=== PATIENT | male | born 1950 | race Caucasian/White ===

== ENCOUNTER 2018-05-11 16:45 | Emergency (ER) | payer OTHER, MEDICARE, SELFPAY ==
[2018-05-11] VITALS (9 sets, daily range): BP systolic 188–231; BP diastolic 99–141; PULSE 67–87; RESP 16–26; TEMP 36.3–36.7; O2SAT 94–98; BMI 23.8
[2018-05-11 17:01] LABS: Bedside Glucose 100 mg/dL (70-110)
--- NOTE | 2018-05-11 17:15 | ED.RN ---
pt denies headache.
--- NOTE | 2018-05-11 17:21 | CT_ITS ---
STUDY: CT BRAIN WITHOUT CONTRAST REASON FOR EXAM: Male, 67 years old. Hypertension with deteriorating vision RADIATION DOSAGE (If Supplied By Facility): CTDIvol = ( 44.99 ) mGy, DLP = ( 863.60 ) mGycm TECHNIQUE: Transaxial CT imaging of the brain was performed without administration of intravenous contrast material. Individualized dose optimization techniques were used for this CT. COMPARISON: None. FINDINGS: Normal soft tissue structures. Normal calvarium. Normal size ventricles and extra-axial spaces for the patient's age. Mild periventricular white matter ischemic changes.. There appears to be a hypoattenuated lesion in the right parieto-occipital region with vasogenic edema and subtle hemorrhage suspicious for neoplasm displacing the occipital horn of the right lateral ventricle. Normal basal ganglia and thalami. Normal brainstem. Normal cerebellum. Empty sella deformity of uncertain significance. There is no intracranial hemorrhage. There are no findings of an acute ischemic infarction. Polypoid lesion in left maxillary sinus and mild mucosal thickening within left ethmoid air cells. CT/Brain/Head without Contrast IMPRESSION: Findings suspicious for neoplastic lesion in the right parieto-occipital region. MRI with and without contrast recommended for further evaluation Electronically Signed: Sergio Sethi MD at 18:33 EDT , Service support ,
--- NOTE | 2018-05-11 17:21 | EKG12_ITS ---
Test Reason : NEURO S/SX Blood Pressure : / mmHG Vent. Rate : 081 BPM Atrial Rate : 081 BPM P-R Int : 140 ms QRS Dur : 098 ms QT Int : 384 ms P-R-T Axes : 077 054 079 degrees QTc Int : 446 ms Normal sinus rhythm Normal ECG Confirmed by MUARI PARK, MAGUE ([id number]), industrial editor TONY SANCHEZ ([id number] on 05/13/2018 10:17:33 AM Referred By: JUJU/GERTRUDIS Confirmed By:MAGUE DOTSON MD
[2018-05-11 17:36] LABS: Absolute Lymphocyte Count 1.77 X10^3/ul (0.83-4.51); Absolute Neutrophil Count 5.8 X10^3/uL (2.0-7.7); Basophil# 0.02 X10^3/uL; Basophil% 0.2 % (0-1); Eosinophil# 0.26 X10^3/uL; Eosinophils% 2.9 % (0-5); Hematocrit 44.5 % (40-54); Hemoglobin 15.3 g/dl (13.0-16.5); Lymphocyte # 1.77 X10^3/ul (4.0); Lymphocyte % 19.9 % (19-41); Mean Corp Hgb Conc 34.4 g/gl (32-36); Mean Corpuscular Hgb 31.5 pg (27.0-32.0); Mean Corpuscular Volume 91.8 fL (80-94); Mean Platelet Vol. 9.4 fl (6.2-12.0); Monocyte# 1.04 X10^3/uL; Monocyte% 11.7 % (0-10); Neutrophil # 5.79 X10^3/uL (2.7-7.7); Neutrophil % 65.1 % (47-70); POSITIVE COUNT NO; POSITIVE DIFFERENTIAL NO; POSITIVE MORPHOLOGY NO; Platelet Count 355 K/mm3 (150-450); RBC Distribution Width CV 12.7 % (11.6-14.6); RBC Distribution Width SD 42.3 fl (35.1-43.9); Red Blood Count 4.85 M/mm3 (4.6-6.2); White Blood Count 8.9 K/mm3 (4.4-11.0)
[2018-05-11 17:41] LABS: Partial Thromboplast Time 24.7 Seconds (24.1-36.2)
[2018-05-11 17:45] LABS: International Normalized Ratio 0.9; Prothrombin Time (Protime)PT. 12.6 SECONDS (11.7-14.9)
[2018-05-11 17:49] LABS: Anion Gap 6 (5-15); BUN 8 mg/dL (7-18); BUN/Creat Ratio 13.2 RATIO (10-20); Chloride 101 mmol/L (98-107); EST Glomerular Filtration Rate 142 mL/min (>60); Est Glom Filt Rate - Afr Amer 172 mL/min (>60); Estimated Creatinine Clearance 72.66 ml/min; Glucose 94 mg/dL (74-106); Sodium Level 135 mmol/L (136-145)
--- NOTE | 2018-05-11 17:50 | RAD_ITS ---
STUDY: X-RAY CHEST REASON FOR EXAM: Male, 67 years old. Sent from eye doctor for hypertension headache and vision changes. TECHNIQUE: Single AP portable view of the chest. COMPARISON: January 18, 2016. FINDINGS: Telemetry wires overlie the chest. There is now a rounded mass measuring 5.7 x 5.6 cm in the right upper lobe. This was not previously seen. Again seen are emphysematous changes of the lungs although today's study demonstrates a slightly decreased inspiratory effort compared to the prior exam. There is no demonstrated pleural abnormality. Normal size heart. Normal mediastinum and keren. Normal visualized pulmonary arteries. Normal visualized aortic arch and descending thoracic aorta. Normal visualized thoracic spine. Normal visualized ribs, clavicles, and shoulders. There is no demonstrated abnormality of the visualized soft tissue structures of the upper abdomen. RAD/Chest 1 View IMPRESSION: 1. Large right upper lobe mass not present on the previous study. 2. Emphysematous changes of the lungs. Electronically Signed: Bertin Alegria DO at 18:30 EDT Tel [phone], Service support ,
--- NOTE | 2018-05-11 19:26 | ED.DCSUM_ITS ---
- ER Visit Summary Date of Service: 05/11/18 Chief Complaint: Vision changes History of Present Illness: The patient is a 67 M with vision changes that started earlier today. He went to the eye doctor and apparently was dilated and had no intraocular pathology. He was sent to the emergency department for further studies. He tells me he cannot see to his right side, quite blurry, he has no weakness in his arms or legs. No facial droop no sensory deficit no speech deficit. Physical Examination: Not appear in acute distress. Moist mucous membranes, no obvious facial deformity No C-spine tenderness supple neck. Regular rate and rhythm without any obvious murmurs Clear lungs bilaterally speaking in full sentences without any obvious respiratory distress Abdomen soft and nontender no guarding or rebound Moves all extremities without any difficulty or pain. Skin does not show any obvious rashes or lesions, no trauma. Alert oriented ?3 no weakness in arms or legs, he does have right word hemianopsia. Emergency Department Course and Treatment: [Unfortunately his workup was consistent with a neoplastic lesion right miroslava-occipital region, his chest x- ray also showed a large right upper lobe mass. Dexamethasone was given. Because of his vision changes and new mass he will need to be transferred, he was quite hypertensive and this was treated with labetalol and his blood pressure did improve. He will be transferred for further neurosurgical and oncological workup.] Disposition: [Transfer in stable] Impression: [ You diagnosis of brain mass New diagnosis chest mass] This note was generated with [employer] dictation software. It may contain incorrect words, spelling, and punctuation that were not noted in review of the chart prior to signing ED Disposition - Plan for ED Patient: Chief Complaint: Neuro S/Sx Referrals: Care Physician,No Primary [Primary Care Provider] -
--- NOTE | 2018-05-11 19:29 | ED.RN ---
DR. CABA VERBAL ORDER TO DISCONTINUE NIH STROKE SCALE
== END 2018-05-11 22:31 | disposition short-term general hospital (02) ==
PROVIDERS: Emergency Provider Emergency Medicine
DX: G93.9 Disorder of brain, unspecified (principal); R91.8 Other nonspecific abnormal finding of lung field
CPT/HCPCS: 70450; 71045; 80048; 82962; 84484; 85025; 85610; 85730; 93005; 96374; 99285; A4216

== ENCOUNTER 2018-06-26 10:00 | Emergency (ER) | payer OTHER, MEDICARE, SELFPAY ==
[2018-06-26 10:01] VITALS: BP 109/62; PULSE 93; RESP 16; TEMP 37.1; O2SAT 95; BMI 22.9
--- NOTE | 2018-06-26 10:26 | ED.DCSUM_ITS ---
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 He developed a diffuse urticarial type rash approximately 3 days ago. It has been progressively worse. He is concerned that he could be having an allergic reaction to 1 of his 4 new blood pressure medications that were started. He denies any other new medications or obvious exposures. He did have mild relief with Benadryl last night. It is somewhat worse on his scalp but this has been improving using an unscented lotion after the radiation treatments. He is more concerned about the diffuse urticarial type rash. He denies trouble breathing or swallowing. His blood pressure has been running in the low 100s. Physical Examination: His vitals are within normal limits. Blood pressure is 109/62. He is not in distress. He does have somewhat dry scaly skin on his scalp and face but there is no evidence of secondary cellulitis. He has a diffuse urticarial rash all over his entire body. No uvular edema, tongue elevation, or trouble swallowing. Anterior neck structures are soft and lungs are clear. There is no stridor. Test Results: None performed Emergency Department Course and Treatment: He does appear to be having some sort of allergic reaction. I discussed the case with Dr. Miller, who knows him well. He suggested that we start discontinuing blood pressure medications one at a time because this is most likely the cause. He recommended discontinuing the hydralazine for now and giving him a dose of Medrol here in the emergency department as well as starting him on a Medrol Dosepak. He is going to see him on Friday for a recheck and the patient was advised to return to the emergency department if worse before then Treatment Plan: Oral Medrol Dosepak Disposition: Home stable condition Impression: Initial encounter allergic reaction to medication This note was generated with [employer] dictation software. It may contain incorrect words, spelling, and punctuation that were not noted in review of the chart prior to signing ED Disposition - Plan for ED Patient: Chief Complaint: Allergic Reaction Instructions: ED Drug React Allergic Prescriptions: MethylPREDNISolone DosePak [Medrol DosePak] 4 mg PO UD #1 box Referrals: Efren Miller DO [STAFF PHYSICIAN] - 06/29/18
[2018-06-26] MEDS: MethylPREDNISolone 4 MG Tablet 32 MG PO (10:38)
== END 2018-06-26 10:42 | disposition home or self-care (01) ==
PROVIDERS: Emergency Provider Emergency Medicine
DX: L50.0 Allergic urticaria (principal); T50.905A Adverse effect of unspecified drugs, medicaments and biological substances, initial encounter; Y92.9 Unspecified place or not applicable; C34.90 Malignant neoplasm of unspecified part of unspecified bronchus or lung; C79.31 Secondary malignant neoplasm of brain; J44.9 Chronic obstructive pulmonary disease, unspecified; I10 Essential (primary) hypertension; Z79.899 Other long term (current) drug therapy; Z72.0 Tobacco use
CPT/HCPCS: 99283

== ENCOUNTER → 2019-04-14 | Outpatient (CLI) | payer OTHER, MEDICARE, SELFPAY ==
--- NOTE | 2019-04-14 14:47 | RAD_ITS ---
STUDY: X-RAY - LUMBAR SPINE REASON FOR EXAM: Male, 68 years old. Chronic low back pain TECHNIQUE: 2 view(s) of the lumbar spine were obtained. COMPARISON: MRI dated 01/24/2016 FINDINGS: There are stable old compression fractures of the L1 and L3 vertebral bodies. There is no acute fracture. There are stable degenerative changes. RAD/Lumbar Spine 2 or 3 Views IMPRESSION: Stable old compression fractures of the L1 and L3 vertebral bodies. No acute fracture. Stable degenerative changes. Electronically Signed: Josh Salomon, at 20:33 EDT Tel , Service support ,
== END | disposition home or self-care (01) ==
PROVIDERS: Family Provider Internal Medicine; PCP Internal Medicine; Referring Provider Anesthesiology Pain Medicine; Visit Provider Anesthesiology Pain Medicine
DX: M54.9 Dorsalgia, unspecified (principal)
CPT/HCPCS: 72100

== ENCOUNTER 2019-05-08 10:39 | Emergency (ER) | payer OTHER, MEDICARE, SELFPAY ==
[2019-05-08 10:42] VITALS: BP 112/87; PULSE 71; RESP 18; TEMP 36.4; O2SAT 96; BMI 21.5
--- NOTE | 2019-05-08 11:13 | ED.VIS.GEN ---
History of Present Illness <Chiquita Malagonfer - Last Filed: 05/08/19 16:04> Detail of Chief Complaint: Acute on chronic back pain Informant: Patient, Family Onset: Yesterday Current Severity: Moderate Maximum Severity: Moderate Narrative: Delmer is a 68-year-old male with chronic back pain. He had a epidural injection on April 20 and was doing fairly well until yesterday. He is having an exacerbation of his chronic pain. He denies loss of bowel bladder function or paresthesia or weakness of extremities. He has no pain radiation to lower extremities. His pain is aggravated by movement. He denies fever chills or urinary symptoms or constipation. He is currently not on any prescribed pain medications. He did call the pain management office and they instructed him to come to the ED Prior similar symptoms: Yes Recent Illness/Hospitalization: No <Porsha Dennis - Last Filed: 05/08/19 17:57> Chief Complaint: Back Past Medical History <Jaki Malagon - Last Filed: 05/08/19 16:04> Smoking Status: Former smoker <Porsha Dennis - Last Filed: 05/08/19 17:57> - Allergies and Home Meds Allergies/Adverse Reactions: Allergies No Known Allergies Allergy (Verified 05/08/19 10:41) Primary Care Physician: Bahman Ernandez MD [STAFF PHYSICIAN] - Denilson Dye MD [Primary Care Provider] - Review of Systems General: Denies: Chills, Fever Eyes: Denies: Visual changes - left, Blurred vision - left Cardiovascular: Denies: Chest pain, Palpitations Respiratory: Denies: Dyspnea, Cough Gastrointestinal: Denies: Abdominal pain, Nausea, Vomiting Genitourinary: Denies: Dysuria, Hematuria Musculoskeletal: Reports: Back pain. Denies: Myalgias, Arthralgias, Neck pain Skin: Denies: Rash Neurological: Denies: Headache, Weakness, Parasthesia <Porsha Dennis - Last Filed: 05/08/19 17:57> Physical Exam Vital Signs/Narrative: Vital Signs Pulse BP 05/08/19 12:12 87 142/98 H <Jaki Malagon - Last Filed: 05/08/19 16:04> Vital Signs/Narrative: Vital Signs Temp Pulse Resp BP Pulse Ox 05/08/19 10:42 97.6 F L 71 18 112/87 H 96 General: Well nourished, Well developed Head: Normocephalic, Atraumatic Eyes: Perrl, EOMI ENT: Moist mucous membranes, No rhinorrhea Cardiovascular: Regular rate, Regular rhythm Respiratory: No distress, CTA bilaterally Abdomen: Soft, Nontender, Nondistended Back: Nontender, Normal Inspection. Negative for: CVA tenderness Extremities: Nontender, No edema Skin: Normal color, No rash Neurological: Alert, Oriented x3, Normal Strength, - - Straight leg raise is negative bilaterally. DTRs lower extremities was 2+ bilaterally. Dorsiflexion of great toes equal bilaterally.. Negative for: Parasthesia, Weakness Psychological: Normal affect, Normal Mood <Porsha Dennis - Last Filed: 05/08/19 17:57> Diagnostic/Tx/Re-eval - Medical Decision Making Patient seen and examined with nurse practitioner. Patient with history of acute on chronic back pain. No new injury. Imaging of spine from earlier this year reviewed. Neuro exam reveals no red flag warning signs. Patient given Lidoderm patch as he does not want additional oral medication or narcotics. Patient to follow-up with his pain management physician. <Jaki Malagon - Last Filed: 05/08/19 16:04> - Medical Decision Making Presents with acute on chronic back pain. He is neurologically intact. An [facility] report was evaluated and there were no prescriptions. He denies taking any pain medication for his back. He did cause painter interior finish who told him to come the emergency department. He had an epidural injection in April. This was his second. He also has a history of lung and brain cancer and he is currently on chemotherapy. He states he had an MRI of his lumbar spine within the last few months that showed no lytic lesions. He was treated with a Lidoderm patch. He was prescribed Lidoderm patch and #12 Percocet for pain. He will follow-up with his painter interior finish next week. He was cautioned to return for loss of bowel bladder function or leg weakness. He was discharged in stable condition and neurologically intact. <Porsha Dennis - Last Filed: 05/08/19 17:57> ED Disposition <Jaki Malagon - Last Filed: 08/03/19 16:04> <Porsha Dennis - Last Filed: 05/08/19 17:57> - Plan for ED Patient: Disposition: Home or Assisted Living Instructions: BACK PAIN (Acute or Chronic) Prescriptions: Lidocaine [Lidoderm Patch] 1 patch TOPICAL DAILY 7 Days #7 patch Prescription Printed Oxycodone HCl/Acetaminophen [Percocet 5/325] 1 tab PO Q6H PRN PRN 3 Days #12 tab PRN Reason: Pain Prescription Printed Referrals: Denilson Dye MD [Primary Care Provider] - Bahman Ernandez MD [STAFF PHYSICIAN] -
[2019-05-08] MEDS: Lidocaine 5% Patch 1 PATCH TOPICAL (11:35)
[2019-05-08 12:12] VITALS: BP 142/98; PULSE 87
== END 2019-05-08 12:13 | disposition home or self-care (01) ==
LOC: ED 11:29
PROVIDERS: Emergency Provider Nurse Practitioner; Family Provider Internal Medicine; PCP Internal Medicine
DX: M54.9 Dorsalgia, unspecified (principal); G89.29 Other chronic pain; Z85.118 Personal history of other malignant neoplasm of bronchus and lung; Z85.841 Personal history of malignant neoplasm of brain; Z79.899 Other long term (current) drug therapy; Z87.891 Personal history of nicotine dependence
CPT/HCPCS: 99283

== ENCOUNTER → 2019-07-01 11:13 | Outpatient (CLI) | payer OTHER, MEDICARE, SELFPAY ==
[2019-07-01 11:59] LABS: Amphetamine Urine VISTA NEGATIVE (<1000 ng/mL); Barbiturate Urine VISTA NEGATIVE (< 200 ng/mL); Benzodiazepine Urine VISTA NEGATIVE (< 200 ng/mL); Cocaine Urine VISTA NEGATIVE (< 300 ng/mL); Ecstacy Urine VISTA NEGATIVE (< 500 ng/mL); Methadone Urine VISTA NEGATIVE (< 300 ng/mL); PCP Urine VISTA NEGATIVE (< 25 ng/mL); THC Urine VISTA NEGATIVE (< 50 ng/mL); Vista UDS pH Range 6
== END ==
PROVIDERS: Family Provider Internal Medicine; PCP Internal Medicine; Referring Provider Anesthesiology Pain Medicine; Visit Provider Anesthesiology Pain Medicine
DX: F11.20 Opioid dependence, uncomplicated (principal)
CPT/HCPCS: 80307